=== PATIENT | female | born 1995 | race Caucasian/White ===

== ENCOUNTER 2017-11-18 20:42 | Emergency (ER) | payer BC, OTHER ==
--- NOTE | 2017-11-18 20:56 | PDOC ---
Rapid Medical Evaluation Time Seen by Provider: 11/18/17 20:49 Medical Evaluation: Allergies Allergy/AdvReac Type Severity Reaction Status Date / Time No Known Allergies Allergy Verified 11/01/11 13:48 11/18/17 20:50 I have performed a brief in-person evaluation of this patient. The patient presents with a chief complaint of: chest pain since yesterday, radiating to back, intermittent, +SOB, denies OCPs, "i had a caffeine overdose two days ago", hx of anxiety Pertinent physical exam findings: well appearing, lungs CTAB, jittery I have ordered the following: EKG, labs The patient will proceed to the ED for further evaluation. Discharge Disposition - Diagnosis Chest pain - Referrals - Patient Instructions - Post Discharge Activity
[2017-11-18 20:59] VITALS: BP 118/68; PULSE 74; TEMP 99.1; BMI 20.8
[2017-11-18 21:14] LABS: BASO % 0.7 % (0-2.0); EOS % 7.8 % (0-4.5); HEMOGLOBIN 12.1 GM/dL (10.7-15.3); LYMPH % 25.7 % (8-40); MCH 29.1 pg (25.7-33.7); MCHC 32.7 g/dl (32.0-36.0); MEAN PLT VOLUME 11.7 fl (7.5-11.1); MONO % 8.9 % (3.8-10.2); NEUT % 56.9 % (42.8-82.8); PLATELET COUNT 170 K/MM3 (134-434); RBC 4.16 M/mm3 (3.60-5.2); RDW 14.6 % (11.6-15.6); WHITE BLOOD COUNT 5.9 K/mm3 (4.0-10.0)
[2017-11-18 21:46] LABS: ANION GAP 6 (8-16); BILIRUBIN,TOTAL 0.3 mg/dL (0.2-1.0); BLOOD UREA NITROGEN 12 mg/dL (7-18); CALCIUM 8.4 mg/dL (8.5-10.1); CHLORIDE 108 mmol/L (98-107); CO2 26 mmol/L (21-32); CREATININE 0.8 mg/dL (0.55-1.02); GLUCOSE,RANDOM 82 mg/dL (74-106); POTASSIUM 4.1 mmol/L (3.5-5.1); SGOT/AST 18 U/L (15-37); SGPT/ALT 17 U/L (12-78); SODIUM 140 mmol/L (136-145)
[2017-11-18 21:48] LABS: ALK PHOS 71 U/L (45-117)
[2017-11-18 21:53] LABS: INR 1.1 (0.82-1.09); PROTHROMBIN TIME (PATIENT) 12.4 SEC (9.98-11.88)
--- NOTE | 2017-11-18 22:30 | PDOC ---
History of Present Illness - General Chief Complaint: Pain Stated Complaint: CHEST PAIN Time Seen by Provider: 11/18/17 20:49 - History of Present Illness Initial Comments: 11/18/17 22:53 The patient is a 22 year old female with no significant PMH who presents for evaluation of chest pain. The patient reports a 2 day history of worsening left sided crampy/spasming chest pain prompting her presentation to the ED for evaluation. She states that she took too much caffeine 2 days ago and feels like she is having heart palpitations. She denies any recent long travel, control use, or leg swelling. She denies fevers, chills, SOB, cough, nausea, vomiting, abdominal pain, or changes with urination or bowel movements. Past History - Past Medical History Allergies/Adverse Reactions: Allergies Allergy/AdvReac Type Severity Reaction Status Date / Time No Known Allergies Allergy Verified 11/18/17 20:55 Home Medications: Ambulatory Orders No Home Medications 0 dose .ROUTE UTDICT 04/14/12 COPD: No - Suicide/Smoking/Psychosocial Hx Smoking Status: No Smoking History: Never smoked Have you smoked in the past 12 months: No Number of Cigarettes Smoked Daily: 0 Information on smoking cessation initiated: No Hx Alcohol Use: No Drug/Substance Use Hx: No Substance Use Type: None Review of Systems - Review of Systems Comments:: 11/18/17 23:00 Constitutional: No fevers, chills, fatigue, malaise HEENT: No Rhinorrhea, nasal congestion, visual changes Cardiovascular: Chest pain, palpitations. No syncope, lightheadedness Respiratory: No Cough, SOB, Hemoptysis, Gastrointestinal: No Abdominal pain, Nausea, Vomiting, Constipation, Diarrhea, Melena Genitourinary: No Dysuria, Frequency, Urgency, Hesitancy, Hematuria, Flank pain Musculoskeletal: No Myalgia, arthralgia Skin: No rashes, itching, bruising, pallor Neurologic: No Headache, Dizziness, Numbness, Weakness, or Tingling Psychiatric: No Hallucinations. No SI or HI *Physical Exam - Vital Signs Last Vital Signs Temp Pulse Resp BP Pulse Ox 99.1 F 74 18 118/68 100 11/18/17 20:56 11/18/17 20:56 11/18/17 20:56 11/18/17 20:56 11/18/17 20:56 - Physical Exam Comments: 11/18/17 23:00 General Appearance: Nourished. No Apparent Distress HEENT: No Pharyngeal Erythema, Tonsillar Exudate, Tonsillar Erythema Neck: No Cervical Lymphadenopathy Respiratory/Chest: Lungs Clear, Normal Breath Sounds. No Crackles, Rales, Rhonchi, Wheezing Cardiovascular: Regular Rhythm, Regular Rate. No Murmur, Gallops, Rubs Gastrointestinal/Abdominal: Normal Bowel Sounds, Soft. No Guarding, Rebound, Tenderness Musculoskeletal: No CVA Tenderness Extremity: Normal Capillary Refill Integumentary: Normal Color, Dry, Warm Neurologic: Fully Oriented, Alert, Normal Mood/Affect, Normal Response, Heart Score/ECG Review #1 ECG reviewed & interpreted by me at: 23:11 General ECG Interpretation: Sinus Rhythm, Normal Rate, Normal Intervals, No acute ischemic changes ED Treatment Course - LABORATORY CBC & Chemistry Diagram: 11/18/17 21:06 11/18/17 21:06 - ADDITIONAL ORDERS Additional order review: Laboratory Results 11/18/17 11/18/17 11/18/17 22:05 21:06 21:06 PT with INR INR D-Dimer 243 Sodium 140 Potassium 4.1 Chloride 108 H Carbon Dioxide 26 Anion Gap 6 L BUN 12 Creatinine 0.8 Creat Clearance w eGFR > 60 Random Glucose 82 Calcium 8.4 L Magnesium 2.0 Total Bilirubin 0.3 AST 18 ALT 17 Alkaline Phosphatase 71 Creatine Kinase 258 H Creatine Kinase Index 0.3 CK-MB (CK-2) < 1.000 Troponin I < 0.02 Total Protein 7.0 Albumin 4.0 Serum , Qual Negative 11/18/17 21:06 PT with INR 12.40 H INR 1.10 D-Dimer Sodium Potassium Chloride Carbon Dioxide Anion Gap BUN Creatinine Creat Clearance w eGFR Random Glucose Calcium Magnesium Total Bilirubin AST ALT Alkaline Phosphatase Creatine Kinase Creatine Kinase Index CK-MB (CK-2) Troponin I Total Protein Albumin Serum , Qual 11/18/17 21:06 RBC 4.16 MCV 89.0 MCHC 32.7 RDW 14.6 MPV 11.7 H Neutrophils % 56.9 Lymphocytes % 25.7 Monocytes % 8.9 Eosinophils % 7.8 H Basophils % 0.7 Medical Decision Making - Medical Decision Making 11/18/17 23:01 The patient is a 22 year old female with no significant PMH who presents for evaluation of chest pain. Differential includes but is not limited to: ACS, PE , Pneumonia, musculoskeletal, infectious, metabolic derangement. Labs performed in triage including a cbc, cmp, troponin, d-dimer, serum are unremarkable. Given the patient's physical exam, it is likely her symptoms are due to a musculoskeletal etiology. We will obtain a chest plain film and continue to monitor and reassess. 11/18/17 23:11 Chest plain film is unremarkable as preliminarily read by the ER physician pending official radiology read. We are comfortable discharging the patient home with primary care provider and cardiology follow up. We discussed the results and the plan with the patient who voiced understanding and is agreeable with the plan. *DC/Admit/Observation/Transfer Diagnosis at time of Disposition: Chest pain Qualifiers: Chest pain type: unspecified Qualified Code(s): R07.9 - Chest pain, unspecified - Discharge Dispostion Disposition: HOME Condition at time of disposition: Good Admit: No - Referrals Referrals: Adilson Blake [Primary Care Provider] - Vaibhav Zelaya MD [Staff Physician] - - Patient Instructions Printed Discharge Instructions: DI for Atypical Chest Pain Additional Instructions: Please return to the ER if you experience concerning or worsening symptoms including worsening pain, difficulty breathing or vomiting. Your lab results and x-rays were normal here in the ER. You symptoms are likely due to a musculoskeletal issue and you may use ibuprofen as needed at home to help manage your symptoms. We have provided a number for a computer systems software architect that you should call to schedule a follow up appointment within 1 week to further discuss your symptoms. Please also call your primary care provider within 1 week to discuss your ER visit. - Post Discharge Activity
[2017-11-18] MEDS ORDERED: IBUPROFEN 600 MG TABLET (FP) PO ONE ×2 (23:08→23:15)
--- NOTE | 2017-11-18 23:08 | PDOC ---
Attending Attestation - HPI HPI: 11/18/17 23:08 The patient is a 22 year old female, with no significant past medical history, who presents to the emergency department with chest pain for approximately 2 days. The patient reports her pain is localized to the left side of her chest and describes it as crampy in nature. Patient admits to taking more caffeine than usual 2 days ago, after which she reports developing palpitations. She denies any associated shortness of breath, diaphoresis, or lower extremity edema. She denies any recent travel, sick contacts, or use of control. She denies any fever, chills, cough, headache, or dizziness. She denies any abdominal pain, nausea, vomiting, diarrhea, or constipation. She denies any dysuria, hematuria, frequency or urgency. - Physicial Exam PE: 11/18/17 23:08 GENERAL: Awake, alert, and fully oriented, in no acute distress HEAD: No signs of trauma EYES: PERRLA, EOMI, sclera anicteric, conjunctiva clear ENT: Auricles normal inspection, hearing grossly normal, nares patent, oropharynx clear without exudates. Moist mucosa NECK: Normal ROM, supple, no lymphadenopathy, JVD, or masses LUNGS: Breath sounds equal, clear to auscultation bilaterally. No wheezes, and no crackles HEART: Regular rate and rhythm, normal S1 and S2, no murmurs, rubs or gallops ABDOMEN: Soft, nontender, normoactive bowel sounds. No guarding, no rebound. No masses EXTREMITIES: Normal range of motion, no edema. No clubbing or cyanosis. No cords, erythema, or tenderness NEUROLOGICAL: Cranial nerves II through XII grossly intact. Normal speech, normal gait SKIN: Warm, Dry, normal turgor, no rashes or lesions noted. - Medical Decision Making 11/18/17 23:08 Documentation prepared by Avelina Ibarra, acting as bio medical technician for Bronwyn Cardenas MD. <Avelina Ibarra - Last Filed: 11/18/17 23:25> - Resident Resident Name: José Miguel Amador - ED Attending Attestation I have performed the following: I have examined & evaluated the patient, The case was reviewed & discussed with the resident, I agree w/resident's findings & plan - HPI HPI: 11/18/17 23:06 Pt comes with atypical chest pain some palpitaitons after 2 shots of espresso, followed by working out, running, rock climbing. She also mentioned that she tripped and fell and she may have injured her chest wall by straining and bracing her fall. - Physicial Exam PE: 11/18/17 23:07 Agree with resident exam - Medical Decision Making 11/18/17 23:07 Pt will follow with [facility] [employer] outpatient. 11/20/17 05:49 Pt likely has chest strain from her fall; palpitations likely due to the caffeine and the running workout that she had soon afterwards. Pt is felling better and she has normal labs and exam in the ER as well as noral EKG. <Bronwyn Cardenas - Last Filed: 11/20/17 05:50> Heart Score/ECG Review - ECG Intrepretation Comment:: 11/18/17 23:09 Vent Rate: 82 bpm IMPRESSION: Normal sinus rhythm. No ST elevations or T wave inversions. <Avelina Ibarra - Last Filed: 11/18/17 23:25>
--- NOTE | 2017-11-22 11:38 | EKG ---
Test Reason : Blood Pressure : / mmHG Vent. Rate : 082 BPM Atrial Rate : 082 BPM P-R Int : 140 ms QRS Dur : 082 ms QT Int : 368 ms P-R-T Axes : 068 074 064 degrees QTc Int : 429 ms POOR DATA QUALITY, INTERPRETATION MAY BE ADVERSELY AFFECTED NORMAL SINUS RHYTHM WITH SINUS ARRHYTHMIA POSSIBLE LEFT ATRIAL ENLARGEMENT BORDERLINE ECG NO PREVIOUS ECGS AVAILABLE Confirmed by MD Paul, José Miguel ([id number]) on 11/22/2017 11:38:19 AM Referred By: Confirmed By:José Miguel Miller MD
== END 2017-11-18 23:29 | disposition home or self-care (01) ==
LOC: JER 20:42
DX: R07.89 Other chest pain (principal); F41.9 Anxiety disorder, unspecified
CPT/HCPCS: 36415; 71046-TC-FY; 80053; 82550; 82553; 83735; 84484; 84703; 85025; 85379; 85610; 93005; 93010; 99283-25